=== PATIENT | female | born 1935 | race Caucasian/White ===

== ENCOUNTER 2016-11-24 12:21 | Outpatient (CLI) ==
[2015-11-22 07:28] VITALS: BMI 35.4
[2016-11-24 12:31] LABS: BILIRUBIN,URINE Negative (NEGATIVE); KETONES,URINE Negative (NEGATIVE); LEUKOCYTE ESTERASE ,URINE 3+ (NEGATIVE); NITRITE,URINE Positive (NEGATIVE); PH,URINE 5.5 (5-9); PROTEIN,URINE 1+ (NEGATIVE); URINE, BLOOD 2+ (NEGATIVE)
[2016-11-24 12:36] LABS: ADD URINE MICROSCOPIC YES
[2016-11-24 12:48] LABS: BACTERIA,URINE 3+ (NOT PRESENT)
== END 2016-11-24 12:22 | disposition home or self-care (01) ==
LOC: LAB 12:21
PROVIDERS: ATTEND Family Medicine
DX: R50.9 Fever, unspecified (principal); R30.0 Dysuria
CPT/HCPCS: 81001; 87086; 87186

== ENCOUNTER 2017-03-05 12:08 | Outpatient (CLI) ==
[2015-11-22 07:28] VITALS: BMI 35.4
[2017-03-05 12:23] LABS: BILIRUBIN,URINE 1+ (NEGATIVE); KETONES,URINE Negative (NEGATIVE); LEUKOCYTE ESTERASE ,URINE 2+ (NEGATIVE); NITRITE,URINE Positive (NEGATIVE); PH,URINE >=9.0 (5-9); PROTEIN,URINE 3+ (NEGATIVE); URINE, BLOOD 3+ (NEGATIVE)
[2017-03-05 12:28] LABS: ADD URINE MICROSCOPIC YES
== END 2017-03-05 12:09 | disposition home or self-care (01) ==
LOC: NONPT 12:08
PROVIDERS: ATTEND Family Medicine
DX: R35.0 Frequency of micturition (principal); R31.9 Hematuria, unspecified
CPT/HCPCS: 81001; 87086; 87186

== ENCOUNTER 2017-04-24 09:44 | Outpatient (CLI) ==
[2015-11-22 07:28] VITALS: BMI 35.4
--- NOTE | 2017-04-24 10:43 | MAMMO ---
EXAM: Bilateral digital screening mammogram History: Screening Comparison: Bilateral mammogram 04/02/2016 Findings: MLO and CC views of bilateral breasts demonstrate scattered fibroglandular breast parenchy ma. Postoperative changes again seen within the right breast. Stable benign bilateral vascular and scattered calcifications. Impression: Benign stable mammogram. Recommend followup routine screening mammography in 1 year. BIRADS 2
== END 2017-04-24 09:45 | disposition home or self-care (01) ==
LOC: RAD 09:44
PROVIDERS: ATTEND Family Medicine
DX: Z12.31 Encounter for screening mammogram for malignant neoplasm of breast (principal); Z85.3 Personal history of malignant neoplasm of breast
CPT/HCPCS: 77067

== ENCOUNTER 2017-12-03 13:42 | Outpatient (CLI) | payer OTHER ==
[2015-11-22 07:28] VITALS: BMI 35.4
== END 2017-12-03 13:43 | disposition short-term general hospital (02) ==
LOC: AMBL 13:42
PROVIDERS: ATTEND Emergency Medicine
DX: D64.9 Anemia, unspecified (principal); R19.7 Diarrhea, unspecified; Z85.038 Personal history of other malignant neoplasm of large intestine

== ENCOUNTER 2017-12-18 08:18 | Outpatient (CLI) | payer OTHER ==
[2015-11-22 07:28] VITALS: BMI 35.4
== END 2017-12-18 08:19 | disposition home or self-care (01) ==
LOC: LAB 08:18 → NONPT 08:19
PROVIDERS: ATTEND Family Medicine
DX: N39.0 Urinary tract infection, site not specified (principal)
CPT/HCPCS: 81001; 87086; 87186

== ENCOUNTER 2017-12-19 12:59 | Outpatient (CLI) | payer OTHER ==
[2015-11-22 07:28] VITALS: BMI 35.4
--- NOTE | 2017-12-19 13:22 | DI ---
EXAM: Radiographs, pelvis HISTORY: Decreased range of motion of the left hip. COMPARISON: Pelvic CT 11/22/2015. TECHNIQUE: Two views. 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 Visualized portions appear i ntact although the distal aspect of the femoral stem is not included on the examination. Cerclage wi res over the left greater trochanter are stable. No acute fracture or dislocation identified. Degen erative changes present in the lower lumbar spine. Right-sided ureteral stent is partially imaged. Clips and william seen over the right lower abdomen. Extensive atherosclerotic calcifications are pr esent. IMPRESSION: No fracture or dislocation.
== END 2017-12-19 13:00 | disposition home or self-care (01) ==
LOC: RAD 12:59
PROVIDERS: ATTEND Family Medicine
DX: M25.652 Stiffness of left hip, not elsewhere classified (principal)

== ENCOUNTER 2018-01-03 13:50 | Outpatient (CLI) ==
[2015-11-22 07:28] VITALS: BMI 35.4
--- NOTE | 2018-01-03 16:29 | CT ---
EXAM: CT Pelvis without contrast. HISTORY: Left hip and leg pain. COMPARISON: Radiograph 12/19/2017. CT 11/22/2015. TECHNIQUE: Multiple axial images of the pelvis were obtained without intravenous contrast. Images w ere reformatted in the coronal and sagittal plane. FINDINGS: Please note that evaluation of the pelvic soft tissue structures is limited due to lack of intravenous contrast. Left hip arthroplasty hardware appears well seated. Difficult to exclude a fluid collection along th e inferior aspect of the femoral head neck component although beam-hardening artifact limits evaluati on. This is best seen on image 61. The bones are demineralized. No pelvic fracture identified. Mild right hip joint space narrowing an d marginal osteophyte formation noted. Lower lumbar degenerative changes are more advanced although incompletely imaged. Old mild superior endplate compression deformity of L5 is seen. There has been previous bowel surgery. A right ureteral stent is partially imaged. Extensive athero sclerotic calcifications are present IMPRESSION: 1. No fracture. 2. The possibility of fluid collection inferior to the left hip arthroplasty head/neck is difficult to exclude. Consider dedicated ultrasound if warranted.
== END 2018-01-03 13:51 | disposition home or self-care (01) ==
LOC: RAD 13:50
PROVIDERS: ATTEND Family Medicine
DX: M25.552 Pain in left hip (principal); M79.605 Pain in left leg

== ENCOUNTER 2018-01-06 08:17 | Outpatient (CLI) ==
[2015-11-22 07:28] VITALS: BMI 35.4
== END 2018-01-06 08:18 | disposition home or self-care (01) ==
LOC: NONPT 08:17
PROVIDERS: ATTEND Family Medicine
DX: N39.0 Urinary tract infection, site not specified (principal)
CPT/HCPCS: 81001; 87086

== ENCOUNTER 2018-05-22 11:46 | Outpatient (CLI) | payer OTHER ==
[2015-11-22 07:28] VITALS: BMI 35.4
== END 2018-05-22 11:47 | disposition home or self-care (01) ==
LOC: NONPT 11:46
PROVIDERS: ATTEND Family Medicine
DX: R41.0 Disorientation, unspecified (principal)
CPT/HCPCS: 81001; 87086; 87186